=== PATIENT | male | born 1980 | race Caucasian/White ===

== ENCOUNTER 2021-02-13 19:57 | Emergency (ER) | payer SELFPAY ==
[~2021-02-13] VITALS: Ht 182.9 cm; Wt 82.0 kg
[2021-02-13] MEDS ORDERED: HALOPERIDOL LACTATE 5MG/ML VIAL IM ONE (23:30)
[2021-02-14 00:23] LABS: BASOPHILS % 0.9 % (0.0-2.0); EOSINOPHILS % 1.2 % (0.0-5.0); HEMATOCRIT. 39.8 % (42.0-52.0); HEMOGLOBIN. 14.1 g/dL (14.0-18.0); LYMPHOCYTES % 18.6 % (20.0-50.0); MEAN CORPUSCULAR HEMOGLOBIN 30.9 pg (28.0-32.0); MEAN CORPUSCULAR VOLUME 87.7 fL (80.0-94.0); MEAN PLATELET VOLUME 7.5 fl (7.4-10.4); MONOCYTES % 6.3 % (2.0-8.0); PLATELET 307 x1000/uL (130-400); RED BLOOD CELL COUNT 4.54 mill/uL (4.7-6.1); RED CELL DISTRIBUTION WIDTH 13.4 % (11.6-14.6)
[2021-02-14 00:31] LABS: CHLORIDE 110 mEq/L (98-107)
[2021-02-14 00:36] LABS: ETHANOL BLOOD < 10 mg/dL
[2021-02-14 00:40] LABS: CREATINE KINASE 320 IU/L (39-308)
[2021-02-14] MEDS ORDERED: MIDAZOLAM HCL 2 MG/2 ML VIAL IM ONE (02:15)
[2021-02-14] MEDS ORDERED: HALOPERIDOL LACTATE 5MG/ML VIAL IM ONE (02:15)
[2021-02-14 02:51] LABS: CLARITY URINE CLEAR (CLEAR); COLOR URINE YELLOW (YELLOW); KETONES URINE NEGATIVE (NEGATIVE); LEUKOCYTE ESTERASE URINE NEGATIVE (NEGATIVE); NITRITE URINE NEGATIVE (NEGATIVE); OCCULT BLOOD URINE NEGATIVE (NEGATIVE); PROTEIN URINE NEGATIVE (NEGATIVE); SPECIFIC GRAVITY URINE 1.025 (1.005-1.030)
[2021-02-14 03:20] LABS: *AMPHETAMINES SCREEN URINE PRESUMTIVE POSITIVE (NEGATIVE); *BARBITURATES SCREEN URINE NEGATIVE (NEGATIVE); *BENZODIAZEPINES SCREEN URINE NEGATIVE (NEGATIVE); *COCAINE SCREEN URINE PRESUMTIVE POSITIVE (NEGATIVE); METHADONE URINE SCREEN NEGATIVE (NEGATIVE); OPIATES URINE SCREEN NEGATIVE (NEGATIVE)
[2021-02-14 03:21] LABS: CANNABINOID URINE SCREEN PRESUMTIVE POSITIVE (NEGATIVE); PHENCYCLIDINE URINE SCREEN PRESUMTIVE POSITIVE (NEGATIVE)
[2021-02-14 10:00] VITALS: BP 145/73
== END 2021-02-14 10:26 | disposition home or self-care (01) ==
LOC: EDBD 19:57 → ER 19:57
DX: R41.82 Altered mental status, unspecified (principal); F15.10 Other stimulant abuse, uncomplicated
CPT/HCPCS: 36415; 70450; 71045; 80053; 80305; 80307; 80320; 80329; 81003; 82140; 82550; 84484; 85025; 85610; 93005; 96372; 99285; J1630; J2250; Z7610; G0480

== ENCOUNTER 2021-04-30 15:55 | Emergency (ER) | payer SELFPAY ==
[~2021-04-30] VITALS: Ht 175.3 cm; Wt 84.0 kg
[2021-04-30 16:01] VITALS: BP 167/105
== END 2021-04-30 16:27 | disposition left against medical advice (07) ==
LOC: ER 15:55
DX: R41.82 Altered mental status, unspecified (principal); F15.10 Other stimulant abuse, uncomplicated
CPT/HCPCS: 99283

== ENCOUNTER 2021-07-20 16:12 | Emergency (ER) | payer SELFPAY ==
[~2021-07-20] VITALS: Ht 175.3 cm; Wt 100.0 kg
[2021-07-20] MEDS ORDERED: SODIUM CHLORIDE 0.9% 1,000 ML IV ONE ×2 (16:30)
[2021-07-20 16:40] LABS: BASOPHILS % 0.6 % (0.0-2.0); HEMATOCRIT. 41.7 % (42.0-52.0); HEMOGLOBIN. 14.3 g/dL (14.0-18.0); LYMPHOCYTES % 25.3 % (20.0-50.0); MEAN CORPUSCULAR VOLUME 87.2 fL (80.0-94.0); MEAN PLATELET VOLUME 7.9 fl (7.4-10.4); MONOCYTES % 6.3 % (2.0-8.0); NEUTROPHILS % 66.8 % (40.0-76.0); PLATELET 330 x1000/uL (130-400); RED BLOOD CELL COUNT 4.78 mill/uL (4.7-6.1); RED CELL DISTRIBUTION WIDTH 13.9 % (11.6-14.6)
[2021-07-20 16:47] LABS: CHLORIDE 107 mEq/L (98-107)
[2021-07-20 16:51] LABS: ETHANOL BLOOD 115 mg/dL
[2021-07-20] MEDS ORDERED: HALOPERIDOL LACTATE 5MG/ML VIAL IM ONE (17:45)
[2021-07-20] MEDS ORDERED: LORAZEPAM 2MG/ML CPJ IM ONE (17:45)
[2021-07-20 17:59] LABS: CLARITY URINE CLEAR (CLEAR); COLOR URINE YELLOW (YELLOW); KETONES URINE TRACE (NEGATIVE); LEUKOCYTE ESTERASE URINE NEGATIVE (NEGATIVE); NITRITE URINE NEGATIVE (NEGATIVE); OCCULT BLOOD URINE NEGATIVE (NEGATIVE); PROTEIN URINE NEGATIVE (NEGATIVE); SPECIFIC GRAVITY URINE 1.027 (1.005-1.030); UROBILINOGEN URINE 0.2 E.U./dL (0.2-1.0)
[2021-07-20 18:13] LABS: *AMPHETAMINES SCREEN URINE NEGATIVE (NEGATIVE); *BARBITURATES SCREEN URINE NEGATIVE (NEGATIVE); *BENZODIAZEPINES SCREEN URINE NEGATIVE (NEGATIVE); *COCAINE SCREEN URINE NEGATIVE (NEGATIVE); CANNABINOID URINE SCREEN PRESUMTIVE POSITIVE (NEGATIVE); OPIATES URINE SCREEN NEGATIVE (NEGATIVE); PHENCYCLIDINE URINE SCREEN PRESUMTIVE POSITIVE (NEGATIVE)
[2021-07-20 18:14] LABS: METHADONE URINE SCREEN NEGATIVE (NEGATIVE)
[2021-07-21] MEDS: BENZTROPINE MESYLATE 0.5MG TABLET PO SCH ×2 (08:59→21:07)
[2021-07-21] MEDS: HALOPERIDOL 5MG TABLET PO SCH ×2 (08:59→16:54)
[2021-07-21] MEDS: FLUOXETINE HCL 20MG CAPSULE PO SCH (08:59)
[2021-07-21] MEDS ORDERED: HALO2TAB2 MT (15:08)
[2021-07-21] MEDS ORDERED: BENZ1TAB7 MT (15:08)
[2021-07-21] MEDS ORDERED: FLUO20CA33 MT (15:08)
[2021-07-22] MEDS: FLUOXETINE HCL 20MG CAPSULE PO SCH (09:00)
[2021-07-22] MEDS: HALOPERIDOL 5MG TABLET PO SCH (09:00)
[2021-07-22] MEDS ORDERED: BUSP10TA4 MT (11:16)
[2021-07-22 11:41] VITALS: BP 124/80
== END 2021-07-22 11:56 | disposition home or self-care (01) ==
LOC: ER 16:12
DX: R41.82 Altered mental status, unspecified (principal); R55 Syncope and collapse; R45.851 Suicidal ideations; F10.129 Alcohol abuse with intoxication, unspecified; Y90.5 Blood alcohol level of 100-119 mg/100 ml; T40.995A Adverse effect of other psychodysleptics [hallucinogens], initial encounter; Y92.89 Other specified places as the place of occurrence of the external cause; F15.10 Other stimulant abuse, uncomplicated; Z20.822 Contact with and (suspected) exposure to COVID-19
CPT/HCPCS: 36415; 71045; 80053; 80305; 80307; 80320; 80329; 81003; 83880; 84484; 85025; 93005; 96360; 96372; 99285; C9803; J1630; J2060; J7030; U0003; U0005; G0480

== ENCOUNTER 2021-07-23 13:41 | Emergency (ER) | payer OTHER ==
[~2021-07-23] VITALS: Ht 182.9 cm; Wt 100.0 kg
[~2021-07-23 13:41] MED LIST: BUSP10TA4 MT; FLUO20CA33 MT
[2021-07-23 13:43] VITALS: BP 91/52
== END 2021-07-23 14:24 | disposition left against medical advice (07) ==
LOC: ER 13:41
DX: F16.10 Hallucinogen abuse, uncomplicated (principal); F91.8 Other conduct disorders; F17.210 Nicotine dependence, cigarettes, uncomplicated
CPT/HCPCS: 99283

== ENCOUNTER 2021-07-26 14:38 | Emergency (ER) | payer OTHER ==
[~2021-07-26] VITALS: Ht 177.8 cm; Wt 145.0 kg
[2021-07-26 14:50] VITALS: BP 153/94
== END 2021-07-26 15:58 | disposition left against medical advice (07) ==
LOC: ER 14:38
DX: F25.9 Schizoaffective disorder, unspecified (principal); F19.10 Other psychoactive substance abuse, uncomplicated; R03.0 Elevated blood-pressure reading, without diagnosis of hypertension; Z59.02 Unsheltered homelessness; Z62.890 Parent-child estrangement NEC
CPT/HCPCS: 99283

== ENCOUNTER 2021-08-07 20:55 | Emergency (ER) | payer OTHER ==
[~2021-08-07] VITALS: Ht 170.2 cm; Wt 87.0 kg
[2021-08-07 21:29] VITALS: BP 139/88
[2021-08-07] MEDS: DIPHENHYDRAMINE 50MG/ML VIAL IM STA (21:54)
[2021-08-07 22:10] LABS: CLARITY URINE CLEAR (CLEAR); COLOR URINE YELLOW (YELLOW); KETONES URINE NEGATIVE (NEGATIVE); LEUKOCYTE ESTERASE URINE NEGATIVE (NEGATIVE); NITRITE URINE NEGATIVE (NEGATIVE); OCCULT BLOOD URINE NEGATIVE (NEGATIVE); PROTEIN URINE NEGATIVE (NEGATIVE); SPECIFIC GRAVITY URINE 1.005 (1.005-1.030); UROBILINOGEN URINE 0.2 E.U./dL (0.2-1.0)
[2021-08-07 22:20] LABS: *AMPHETAMINES SCREEN URINE NEGATIVE (NEGATIVE); *BARBITURATES SCREEN URINE NEGATIVE (NEGATIVE); *BENZODIAZEPINES SCREEN URINE NEGATIVE (NEGATIVE); *COCAINE SCREEN URINE NEGATIVE (NEGATIVE)
[2021-08-07 22:22] LABS: CANNABINOID URINE SCREEN NEGATIVE (NEGATIVE); METHADONE URINE SCREEN NEGATIVE (NEGATIVE); OPIATES URINE SCREEN NEGATIVE (NEGATIVE); PHENCYCLIDINE URINE SCREEN PRESUMTIVE POSITIVE (NEGATIVE)
[2021-08-07 22:25] LABS: CHLORIDE 104 mEq/L (98-107)
[2021-08-07 22:27] LABS: BASOPHILS % 0.7 % (0.0-2.0); EOSINOPHILS % 1.5 % (0.0-5.0); HEMATOCRIT. 42.4 % (42.0-52.0); HEMOGLOBIN. 14.5 g/dL (14.0-18.0); LYMPHOCYTES % 27.2 % (20.0-50.0); MEAN CORPUSCULAR HEMOGLOBIN 30.4 pg (28.0-32.0); MEAN CORPUSCULAR VOLUME 88.6 fL (80.0-94.0); MEAN PLATELET VOLUME 8.3 fl (7.4-10.4); MONOCYTES % 8.6 % (2.0-8.0); PLATELET 242 x1000/uL (130-400); RED BLOOD CELL COUNT 4.78 mill/uL (4.7-6.1); RED CELL DISTRIBUTION WIDTH 15.1 % (11.6-14.6)
[2021-08-07 22:28] LABS: ETHANOL BLOOD 81 mg/dL
== END 2021-08-08 01:30 | disposition home or self-care (01) ==
LOC: ER 20:55
DX: G92.9 Unspecified toxic encephalopathy (principal); F19.10 Other psychoactive substance abuse, uncomplicated; F10.229 Alcohol dependence with intoxication, unspecified; F17.290 Nicotine dependence, other tobacco product, uncomplicated; Y90.4 Blood alcohol level of 80-99 mg/100 ml
CPT/HCPCS: 36415; 80053; 80305; 80307; 80320; 80329; 81003; 85025; 96372; 99283; J1200; G0480

== ENCOUNTER 2021-08-11 15:43 | Emergency (ER) | payer OTHER ==
[~2021-08-11] VITALS: Ht 180.3 cm; Wt 59.0 kg
[2021-08-11 17:00] VITALS: BP 145/99
[2021-08-12] MEDS ORDERED: NALO4SPR BOTHNSTRLS (04:57)
== END 2021-08-11 17:07 | disposition left against medical advice (07) ==
LOC: ER 15:43
DX: F16.10 Hallucinogen abuse, uncomplicated (principal); F10.10 Alcohol abuse, uncomplicated; Y90.9 Presence of alcohol in blood, level not specified; F32.A Depression, unspecified; I10 Essential (primary) hypertension; F17.210 Nicotine dependence, cigarettes, uncomplicated; Z71.6 Tobacco abuse counseling
CPT/HCPCS: 99283; 99406

== ENCOUNTER 2021-08-11 20:18 | Emergency (ER) | payer OTHER ==
[~2021-08-11] VITALS: Ht 175.3 cm; Wt 73.0 kg
[2021-08-11] MEDS ORDERED: NALOXONE HCL 1 MG/ML 2ML VIAL IV ONE (20:30)
[2021-08-11] MEDS ORDERED: SODIUM CHLORIDE 0.9% 1,000 ML IV ONE (20:30)
[2021-08-11 23:09] LABS: BASOPHILS % 0.3 % (0.0-2.0); EOSINOPHILS % 0.1 % (0.0-5.0); HEMATOCRIT. 46.7 % (42.0-52.0); HEMOGLOBIN. 15.7 g/dL (14.0-18.0); LYMPHOCYTES % 11.5 % (20.0-50.0); MEAN CORPUSCULAR HEMOGLOBIN 29.7 pg (28.0-32.0); MEAN CORPUSCULAR VOLUME 88.4 fL (80.0-94.0); MEAN PLATELET VOLUME 9.1 fl (7.4-10.4); MONOCYTES % 5.4 % (2.0-8.0); NEUTROPHILS % 82.7 % (40.0-76.0); PLATELET 206 x1000/uL (130-400); RED BLOOD CELL COUNT 5.28 mill/uL (4.7-6.1); RED CELL DISTRIBUTION WIDTH 14.7 % (11.6-14.6)
[2021-08-11 23:24] LABS: CHLORIDE 104 mEq/L (98-107)
[2021-08-11 23:34] LABS: ETHANOL BLOOD < 10 mg/dL
[2021-08-12 00:49] LABS: CLARITY URINE CLEAR (CLEAR); COLOR URINE YELLOW (YELLOW); KETONES URINE 1+ (NEGATIVE); LEUKOCYTE ESTERASE URINE NEGATIVE (NEGATIVE); NITRITE URINE NEGATIVE (NEGATIVE); OCCULT BLOOD URINE NEGATIVE (NEGATIVE); PROTEIN URINE TRACE (NEGATIVE); SPECIFIC GRAVITY URINE 1.027 (1.005-1.030)
[2021-08-12 01:07] LABS: *AMPHETAMINES SCREEN URINE PRESUMTIVE POSITIVE (NEGATIVE); *BENZODIAZEPINES SCREEN URINE NEGATIVE (NEGATIVE); *COCAINE SCREEN URINE NEGATIVE (NEGATIVE); METHADONE URINE SCREEN NEGATIVE (NEGATIVE)
[2021-08-12 01:08] LABS: CANNABINOID URINE SCREEN PRESUMTIVE POSITIVE (NEGATIVE); OPIATES URINE SCREEN NEGATIVE (NEGATIVE); PHENCYCLIDINE URINE SCREEN PRESUMTIVE POSITIVE (NEGATIVE)
[2021-08-12 01:45] VITALS: BP 168/92
[2021-08-12 02:20] LABS: *BARBITURATES SCREEN URINE NEGATIVE (NEGATIVE)
[2021-08-12] MEDS ORDERED: NALO4SPR BOTHNSTRLS (04:57)
== END 2021-08-12 05:56 | disposition home or self-care (01) ==
LOC: ER 20:18
DX: G93.40 Encephalopathy, unspecified (principal); R45.6 Violent behavior; F16.10 Hallucinogen abuse, uncomplicated; I10 Essential (primary) hypertension; F10.229 Alcohol dependence with intoxication, unspecified; Y90.0 Blood alcohol level of less than 20 mg/100 ml
CPT/HCPCS: 36415; 80053; 80305; 80307; 80320; 80329; 81003; 85025; 93005; 96361; 96374; 99284; J2310; J7030; Z7610; G0480

== ENCOUNTER 2021-08-30 16:35 | Emergency (ER) | payer OTHER ==
[~2021-08-30] VITALS: Ht 177.8 cm; Wt 105.0 kg
[~2021-08-30 16:35] MED LIST changes: +NALO4SPR BOTHNSTRLS
[2021-08-30 16:41] VITALS: BP 106/56
[2021-08-30] MEDS ORDERED: SODIUM CHLORIDE 0.9% 1,000 ML IV ONE (17:15)
[2021-08-30 18:00] LABS: HEMATOCRIT. 41.9 % (42.0-52.0); HEMOGLOBIN. 14.3 g/dL (14.0-18.0); MEAN CORPUSCULAR HEMOGLOBIN 30.1 pg (28.0-32.0); MEAN CORPUSCULAR VOLUME 88.2 fL (80.0-94.0); MEAN PLATELET VOLUME 7.5 fl (7.4-10.4); PLATELET 304 x1000/uL (130-400); RED BLOOD CELL COUNT 4.75 mill/uL (4.7-6.1); RED CELL DISTRIBUTION WIDTH 15.2 % (11.6-14.6)
[2021-08-30 18:21] LABS: CHLORIDE 101 mEq/L (98-107)
[2021-08-30 18:26] LABS: ETHANOL BLOOD 131 mg/dL
[2021-08-30 19:07] LABS: PLATELET ESTIMATE NORMAL
[2021-08-30] MEDS ORDERED: LORAZEPAM 1MG TABLET PO ONE (20:00)
[2021-08-30] MEDS ORDERED: FLUT9.9S BOTHNSTRLS (20:35)
[2021-08-30] MEDS ORDERED: FLUTICASONE PROPIONATE 50MCG/SPRAY BOTTLE BOTHNSTRLS SCH (20:45)
== END 2021-08-30 20:45 | disposition home or self-care (01) ==
LOC: ER 16:38
DX: F10.129 Alcohol abuse with intoxication, unspecified (principal); G93.40 Encephalopathy, unspecified; I10 Essential (primary) hypertension; F17.200 Nicotine dependence, unspecified, uncomplicated; F16.10 Hallucinogen abuse, uncomplicated; Y90.6 Blood alcohol level of 120-199 mg/100 ml
CPT/HCPCS: 36415; 70450; 71045; 80053; 80320; 82962; 85025; 96360; 99285; J7030; G0480

== ENCOUNTER 2021-08-31 10:28 | Emergency (ER) | payer OTHER ==
[~2021-08-31] VITALS: Ht 167.6 cm; Wt 65.0 kg
[~2021-08-31 10:28] MED LIST changes: +FLUT9.9S BOTHNSTRLS
[2021-08-31 10:50] VITALS: BP 163/93
[2021-08-31] MEDS ORDERED: LORAZEPAM 2MG/ML CPJ IM ONE (11:00)
[2021-08-31 12:22] LABS: BASOPHILS % 0.4 % (0.0-2.0); HEMATOCRIT. 40.4 % (42.0-52.0); HEMOGLOBIN. 14.1 g/dL (14.0-18.0); LYMPHOCYTES % 13.3 % (20.0-50.0); MEAN CORPUSCULAR HEMOGLOBIN 30.3 pg (28.0-32.0); MEAN CORPUSCULAR VOLUME 86.7 fL (80.0-94.0); MEAN PLATELET VOLUME 8.3 fl (7.4-10.4); MONOCYTES % 12.4 % (2.0-8.0); NEUTROPHILS % 72.9 % (40.0-76.0); PLATELET 265 x1000/uL (130-400); RED BLOOD CELL COUNT 4.66 mill/uL (4.7-6.1); RED CELL DISTRIBUTION WIDTH 14.8 % (11.6-14.6)
[2021-08-31] MEDS ORDERED: FOLIC ACID 1 MG, THIAMINE HCL 100 MG, MVI, ADULT NO.1 10 ML in DEXTROSE 5% WATER 1,000 ML IV ONE ×4 (14:30)
[2021-08-31] MEDS ORDERED: CHLORDIAZEPOXIDE 25MG CAPSULE PO ONE (14:30)
[2021-08-31 15:43] LABS: CHLORIDE 102 mEq/L (98-107)
[2021-08-31 18:15] LABS: *AMPHETAMINES SCREEN URINE PRESUMTIVE POSITIVE (NEGATIVE); *COCAINE SCREEN URINE PRESUMTIVE POSITIVE (NEGATIVE); PHENCYCLIDINE URINE SCREEN PRESUMTIVE POSITIVE (NEGATIVE)
[2021-08-31 18:16] LABS: *BARBITURATES SCREEN URINE NEGATIVE (NEGATIVE); *BENZODIAZEPINES SCREEN URINE NEGATIVE (NEGATIVE); CANNABINOID URINE SCREEN NEGATIVE (NEGATIVE); METHADONE URINE SCREEN NEGATIVE (NEGATIVE); OPIATES URINE SCREEN NEGATIVE (NEGATIVE)
== END 2021-08-31 21:48 | disposition home or self-care (01) ==
LOC: ER 10:31
DX: R56.9 Unspecified convulsions (principal); T43.621A Poisoning by amphetamines, accidental (unintentional), initial encounter; Y92.89 Other specified places as the place of occurrence of the external cause; I10 Essential (primary) hypertension; F10.229 Alcohol dependence with intoxication, unspecified; Y90.0 Blood alcohol level of less than 20 mg/100 ml
CPT/HCPCS: 36415; 70450; 80053; 80305; 80320; 85025; 96365; 96372; 99291; J2060; J3411; J3490; J7070; G0480

== ENCOUNTER 2021-09-03 17:22 | Emergency (ER) | payer OTHER ==
[~2021-09-03] VITALS: Ht 177.8 cm; Wt 82.0 kg
[2021-09-03] MEDS ORDERED: SODIUM CHLORIDE 0.9% 1,000 ML IV ONE (18:00)
[2021-09-03 18:25] LABS: BASOPHILS % 1.1 % (0.0-2.0); EOSINOPHILS % 2.7 % (0.0-5.0); HEMATOCRIT. 42.3 % (42.0-52.0); HEMOGLOBIN. 14.9 g/dL (14.0-18.0); LYMPHOCYTES % 42.7 % (20.0-50.0); MEAN CORPUSCULAR HEMOGLOBIN 30.7 pg (28.0-32.0); MEAN CORPUSCULAR VOLUME 87.2 fL (80.0-94.0); MONOCYTES % 7.6 % (2.0-8.0); NEUTROPHILS % 45.9 % (40.0-76.0); RED BLOOD CELL COUNT 4.85 mill/uL (4.7-6.1); RED CELL DISTRIBUTION WIDTH 15.1 % (11.6-14.6)
[2021-09-03 18:35] LABS: CHLORIDE 104 mEq/L (98-107)
[2021-09-03 18:39] LABS: ETHANOL BLOOD 102 mg/dL
[2021-09-03 20:22] VITALS: BP 122/57
[2021-09-03] MEDS ORDERED: DEXTROSE 50% WATER 50ML SYRINGE IV ONE (20:45)
== END 2021-09-04 02:04 | disposition home or self-care (01) ==
LOC: ER 17:22
DX: F10.229 Alcohol dependence with intoxication, unspecified (principal); R41.82 Altered mental status, unspecified; I10 Essential (primary) hypertension; F14.10 Cocaine abuse, uncomplicated; F16.10 Hallucinogen abuse, uncomplicated; Y90.5 Blood alcohol level of 100-119 mg/100 ml
CPT/HCPCS: 36415; 80053; 80320; 82962; 85025; 93005; 96360; 96361; 99284; J7030; G0480